=== PATIENT | male | born 1950 | race Caucasian/White ===

== ENCOUNTER 2022-04-23 07:35 | Day surgery (SDC) | payer OTHER ==
[2022-04-21 10:40] LABS: Absolute Lymphocytes (CBC) 1.6 K/uL (0.7-4.9); Hematocrit 42.9 % (39.6-49.0); Lymphocytes % 35.3 % (15.3-44.8); MPV 8.1 fL (7.6-11.3); RBC Red Blood Cell Count 4.99 M/uL (4.33-5.43)
[2022-04-21 10:52] LABS: Protime INR 1.06
[2022-04-21 10:55] LABS: Potassium 4.3 mmol/L (3.5-5.1)
[2022-04-21 10:58] LABS: SARS-CoV-2 Antigen Rapid Res Negative (Negative)
--- NOTE | 2022-04-21 11:17 | RAD REPORT ---
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 FINDINGS: The lungs are clear. Apical pleural thickening changes are seen similar to comparison. Ch ronic interstitial pattern matches comparison. Heart size is normal and central vasculature is within normal limits. No pleural effusion or pneumothorax seen. No acute bony finding noted. No aortic a bnormality. IMPRESSION: No acute cardiopulmonary process. No significant change from comparison study.
[2022-04-23] MEDS ORDERED: NA CHLORIDE 0.9% 500 ML ONE (07:47)
[2022-04-23] MEDS ORDERED: MIDAZOLAM HCL 2 MG/2 ML INJ ONE ×2 (08:11→08:47)
[2022-04-23] MEDS ORDERED: FENTANYL CITR 100 MCG/2 ML ONE (08:11)
[2022-04-23] MEDS ORDERED: NITROGLYCERIN 100 MCG/ML SYR (for cath lab use only) IV ONE (08:12)
[2022-04-23] MEDS ORDERED: ATROPINE SULF 1 MG/10 ML SYR IV ONE (08:12)
[2022-04-23] MEDS ORDERED: NA CHLORIDE 0.9% 50 ML ONE (08:12)
[2022-04-23] MEDS ORDERED: LIDOCAINE 1% 20 ML MDV ONE (08:21)
[2022-04-23] MEDS ORDERED: HEPA 1000U/500MLS 2,000 UNIT/1,000 ML BAG IV ONE (08:21)
[2022-04-23] MEDS ORDERED: PRASUGREL (EFFIENT) 10 MG TAB ONE (09:26)
--- NOTE | 2022-04-23 11:57 | OP ---
Surgeon: Corbin Young MD Admitted to my service on Reason For Admission: For him to undergo a left heart catheterization, selective coronary arteriogra m, common femoral artery angiogram, primary stent of the LAD proximal to the distal. Indication: Unstable angina. Mr. Vallejo is 72, hypertension, dyslipidemia, abnormal EKG, classic u nstable angina symptoms. Procedure In Detail: Brought to the laboratory [facility] today as an outpatient. He was prepped and draped in t he routine sterile fashion. Given Versed and fentanyl for sedation. Common femoral artery angiogram in the groin was normal. Angio-Seal was used to close the case. A 6-Sami sheath was introduced i n the right common femoral artery successfully using the Seldinger technique and 10 cc of Xylocaine. Total conscious sedation was 75 minutes. Eliazar catheter left and right were used to do the jarrett ry angiography. The JR4 cannulated the right main. He had a completely occluded RCA. It was small, nondominant. He had a dual left main system with the circumflex having about 40% distal stenosis. It was left dominant. The LAD had about a 70% to 80% stenosis that extended from before the first di agonal all the way to the distal LAD. It was worse distally at about 80%. The diagonal had about of 90% stenosis. It was small. The stenosis was ostial. We decided to intervene. He was given Angio max, aspirin, Effient 60 mg. An XBLAD 3.5 with side hole was used to cannulate the left main. A Cou gar wire was used to cross the lesion successfully. I used 3 primary stents to cover the entire sten osis from the distal LAD to the. DICTATION ENDS HERE LAURA/CLAYTON Voice ID: [id number] Report ID: [id number]
[2022-04-23 14:09] VITALS: TEMP 97
[2022-04-23 15:23] VITALS: BP 159/67; O2SAT 97
== END 2022-04-23 16:02 | disposition home or self-care (01) ==
LOC: CCL 07:35
DX: I25.110 Atherosclerotic heart disease of native coronary artery with unstable angina pectoris (principal); I25.82 Chronic total occlusion of coronary artery; I65.23 Occlusion and stenosis of bilateral carotid arteries; I10 Essential (primary) hypertension; E78.2 Mixed hyperlipidemia; N40.0 Benign prostatic hyperplasia without lower urinary tract symptoms; Z79.82 Long term (current) use of aspirin; Z79.899 Other long term (current) drug therapy; Z20.822 Contact with and (suspected) exposure to COVID-19; Z82.49 Family history of ischemic heart disease and other diseases of the circulatory system
CPT/HCPCS: 85025; 80048; 36415; 85610; 85347 ×4; 85730; 71046; 93454; 87811; C1893; C1760; Q9967; G0269; C1725; C1877; C9600; J2250 ×2; J3010; J7040; J1644; J0583

== ENCOUNTER 2023-10-29 11:55 | Day surgery (SDC) | payer OTHER ==
[2023-10-27 13:40] LABS: Absolute Lymphocytes (CBC) 1.4 K/uL (0.7-4.9); Hematocrit 41.8 % (39.6-49.0); Lymphocytes % 23.6 % (15.3-44.8); MCV 86.1 fL (80-100); MPV 7.6 fL (7.6-11.3); Platelets 137 thou/uL (152-406); RBC Red Blood Cell Count 4.85 M/uL (4.33-5.43)
[2023-10-27 13:58] LABS: Potassium 3.7 mEq/L (3.5-5.1); Protime INR 1.06
--- NOTE | 2023-10-27 14:57 | RAD REPORT ---
EXAM DESCRIPTION: Odette Burch And Curtis (2 Views)10/27/2023 1:32 pm CLINICAL HISTORY: Preop for cardiac catheterization. Hypertension COMPARISON: 2021 FINDINGS: The lungs appear clear of acute infiltrate. The heart is normal size IMPRESSION: No acute abnormalities displayed
[2023-10-29] MEDS ORDERED: FENTANYL CITR 100 MCG/2 ML ONE (12:01)
[2023-10-29] MEDS ORDERED: LIDOCAINE 1% 20 ML MDV ONE (12:01)
[2023-10-29] MEDS ORDERED: VERAPAMIL HCL 10 MG/4 ML VIAL IV ONE (12:01)
[2023-10-29] MEDS ORDERED: ATROPINE SULF 1 MG/10 ML SYR IV ONE (12:02)
[2023-10-29] MEDS ORDERED: MIDAZOLAM HCL 2 MG/2 ML INJ ONE (12:02)
[2023-10-29] MEDS ORDERED: HEPARIN 5000 UNIT/ML 1 ML VIAL ONE (12:02)
[2023-10-29] MEDS ORDERED: NA CHLORIDE 0.9% 500 ML ONE (12:02)
[2023-10-29] MEDS ORDERED: HEPARIN 10,000 UNIT/10 ML VIAL IV ONE (12:02)
[2023-10-29] MEDS ORDERED: CLOPIDOGREL 75 MG TABLET ONE (12:20)
[2023-10-29] MEDS ORDERED: ASPIRIN 325 MG TAB ONE (12:20)
[2023-10-29] MEDS ORDERED: TICAGRELOR 90 MG TABLET PO ONE (12:20)
--- NOTE | 2023-10-29 13:28 | EKG ---
Test Date: 2023-10-27 Test Time: 14:18:36 Rrt: KEY MEASUREMENT RESULTS: Intervals: Rate: 53 MD: 170 QRSD: 90 QT: 444 QTc: 416 [place]: P: 84 MD: 170 QRS: 84 T: 84 INTERPRETIVE STATEMENTS: Sinus bradycardia Otherwise normal ECG Compared to ECG 12/03/2014 12:36:48 No significant changes Electronically Signed On 10-29-23 13:24:30 FINANCIAL COMPLIANCE MANAGER by Ruben Gallegos
[2023-10-29 16:16] VITALS: BP 157/73; O2SAT 97
--- NOTE | 2023-10-30 00:22 | OP ---
Date of Procedure: 10/29/2023 Surgeon: KARL WHITNEY Procedures Performed: 1.Selective coronary angiogram. 2.Left heart catheterization. 3.Balloon angioplasty of severe proximal diagonal 1 branch stenosis, I used 2.5 x 15 mm NC balloon. Indication: Unstable angina. Access: Right radial artery, 6-Anguillan, closed with TR band. Complications: None. Bleeding: Less than 20 mL. Total Sedation Time: One hour. Description Of Procedure: After risks, benefits, and alternatives were explained, the patient agreed to procedure and signed informed consent. The patient was brought into the cardiac catheterization laboratory, prepped and draped in usual sterile fashion. I then accessed the right radial artery usi ng pediatric micropuncture kit. Placed 6-Anguillan slender sheath and took 5-Anguillan [place] 4 catheter ov er J-wire into the aortic root, engaged left main and the right coronary artery, took standard views and the catheter was pushed over the wire into the LV, measured the LVEDP and pullback did not record any gradient. Then, we gave systemic heparin to assure still level above 250 throughout the procedu re and then took EBU 3.5 guide and exchanged for the [place] catheter into the aortic root and engaged the left main and took short Runthrough wire into the left main LAD and then to diagonal 1 branch, an d performed balloon angioplasty using 2.5 x 15 mm NC balloon with excellent expansion. Tried to deli ping stent, however, had difficulty passing through the LAD stent, so decided to stop at the balloon a ngioplasty as it did work very well, brought the stenosis from 90% to 0% with MODE-3 flow, so I remov ed the wire. Final angiogram was satisfactory and then removed the guide and the sheath, and placed TR band with good hemostasis. Findings: 1.Left main: Large and normal. 2.LAD: Proximal 10% to 20%, and then there is proximal to mid and to distal LAD widely patent stent . Diagonal 1 branch has proximal 90%, which is the culprit for symptoms, status post successful ball oon angioplasty as above. Diagonal 2 branch has also proximal 90% to 95% stenosis, but very small ar gopi. Distal LAD is normal. 3.Left circumflex: Large and dominant, proximal 30% stenosis and the rest of it is with luminal irr egularity and supplies the entire inferior wall. 4.RCA: Very small, nondominant with proximal GILL BOX OPERATOR and O-2 collaterals fill the vessel very well. 5.LVEDP normal at 8 mmHg. Conclusion: 1.Widely patent LAD stent. 2.Severe diagonal OM branch stenosis, status post successful balloon angioplasty as above. 3.GILL BOX OPERATOR of the RCA with O-2 collaterals and it is small and nondominant. Plan: Aspirin, Plavix, high-dose statin. Follow up with me in the office in 2 weeks. SR/MODL Voice ID: [id number] Report ID: [id number]
== END 2023-10-29 16:11 | disposition home or self-care (01) ==
LOC: CCL 11:55
PROVIDERS: ATTEND Internal Medicine
DX: I25.110 Atherosclerotic heart disease of native coronary artery with unstable angina pectoris (principal); I25.82 Chronic total occlusion of coronary artery; I65.23 Occlusion and stenosis of bilateral carotid arteries; I10 Essential (primary) hypertension; E78.2 Mixed hyperlipidemia; N40.0 Benign prostatic hyperplasia without lower urinary tract symptoms; Z95.5 Presence of coronary angioplasty implant and graft; Z79.02 Long term (current) use of antithrombotics/antiplatelets; Z79.82 Long term (current) use of aspirin; Z79.899 Other long term (current) drug therapy; Z82.49 Family history of ischemic heart disease and other diseases of the circulatory system
CPT/HCPCS: 93005; 85025; 80048; 36415; 83721; 85610; 85730; 71046; 92920; 93458; 76937; C1893; Q9966; C1725; J1644; J2001; J2250; J3010; J7040; 99152; 99153; J0461